=== PATIENT | male | born 1950 | race Caucasian/White ===

== ENCOUNTER 2021-09-03 12:12 | Emergency (ER) | payer BC, OTHER ==
[~2021-09-03] VITALS: Ht 177.8 cm; Wt 94.3 kg
[~2021-09-03 12:12] MED LIST: AMARYL4 MG PO; ATENOLOL50 MG PO; ATORVASTATIN CA80 MG PO; METFORMIN HCL750 MG PO; OMEPRAZOLE MAGN20 MG PO
== END 2021-09-03 16:47 | disposition home or self-care (01) ==
LOC: ED 12:12
DX: U07.1 COVID-19 (principal); J12.82 Pneumonia due to coronavirus disease 2019
CPT/HCPCS: 71045

== ENCOUNTER 2021-09-05 12:24 | Emergency (ER) | payer BC, OTHER ==
[~2021-09-05] VITALS: Ht 177.8 cm; Wt 94.3 kg
--- OUTSIDE RECORDS SUMMARY | 2021-09-05 12:32 | XMS ---
PreManage Notification: DERRICK LIMON [employer] Events No recent Security Events currently on file CRITERIA MET - [facility] - 2 Visits in 30 Days CARE PROVIDERS There are no care providers on record at this time. Susan has no Care Guidelines for this patient. [facility]12 [facility]: Visits indicate total known visits. ED/C VISIT TRACKING (12 MO.) [facility] COMPLAINT: - FLU SYMPTOMS, LOW O2 SATS, WEAK 09/03/2021 12:13 [facility] TYPE: Emergency COMPLAINT: - FLU SYMPTOMS, LOW 02 SAT, DIFFICULTY BREATHING INPATIENT VISIT TRACKING (12 MO.) No inpatient visits to display in this time frame [email or web address]
[2021-09-05] MEDS ORDERED: METFORMIN HCL500 M1 PO (12:50)
[2021-09-05] MEDS ORDERED: ATENOLOL50 MG PO (12:50)
[2021-09-05] MEDS ORDERED: PRAVASTATIN SOD20 MG PO (12:50)
[2021-09-05] MEDS ORDERED: DECADRON6 MG PO (15:29)
== END 2021-09-05 16:02 | disposition home or self-care (01) ==
LOC: ED 12:24
DX: U07.1 COVID-19 (principal); J12.82 Pneumonia due to coronavirus disease 2019; I10 Essential (primary) hypertension; Z87.891 Personal history of nicotine dependence; Z79.899 Other long term (current) drug therapy
CPT/HCPCS: 71045; 94640; 94664; 99284-25; J1100